=== PATIENT | female | born 1990 | race African-American/Black ===

== ENCOUNTER 2020-04-12 07:01 | Emergency (ER) | payer SELFPAY ==
[~2020-04-12] VITALS: Ht 162.6 cm; Wt 70.3 kg
--- NOTE | 2020-04-12 07:05 | NUR ---
patient came in to the er c/o right shoulder pain, per patient she heard a pop. On room air, breathing evenly and unlabored. connected to the monitor and pulse ox. kept comfortable, will continue to monitor accordingly.
[2020-04-12] MEDS ORDERED: FENTANYL PF 100MCG/2ML AMPUL ONE (07:21)
[2020-04-12] MEDS ORDERED: PROPOFOL 0 ML IV ONE (07:29)
[2020-04-12] MEDS ORDERED: PROPOFOL 200 MG/20 ML VIAL IV ONE (07:30)
[2020-04-12] MEDS ORDERED: FENTANYL PF 100MCG/2ML AMPUL IV ONE (07:30)
[2020-04-12] MEDS ORDERED: PROPOFOL 20 ML IV ONE (07:40)
[2020-04-12] MEDS ORDERED: LORAZEPAM 1 MG TABLET PO ONE (08:00)
[2020-04-12 08:56] VITALS: BP 140/90
--- NOTE | 2020-04-12 08:56 | NUR ---
Patient discharged to home in stable condition. Written and verbal after care instructions given. Patient verbalizes understanding of instruction.IV removed. Catheter intact and site benign. Pressure and 4x4 applied to site. No bleeding noted.
== END 2020-04-12 08:56 | disposition home or self-care (01) ==
LOC: ER 07:03
DX: S43.084A Other dislocation of right shoulder joint, initial encounter (principal); X58.XXXA Exposure to other specified factors, initial encounter; Y93.89 Activity, other specified; Y92.89 Other specified places as the place of occurrence of the external cause; Y99.8 Other external cause status
CPT/HCPCS: 23650; 73020; 73030; 99152; 99285; J2704; J3010; J7030; G0500